=== PATIENT | male | born 1955 | race Caucasian/White ===

== ENCOUNTER 2017-01-13 11:10 | Observation (INO) | payer OTHER ==
[2017-01-13] MEDS ORDERED: MIDAZOLAM 2 MG/2 ML VIAL IVP ONE (11:21)
[2017-01-13] MEDS ORDERED: NS 1,000 ML IV ONE (11:21)
[2017-01-13] MEDS ORDERED: MIDAZOLAM 2 MG/2 ML VIAL ONE (11:53)
[2017-01-13] MEDS ORDERED: BUPIVACAINE 0.5% 30 ML SDV ONE (11:54)
[2017-01-13] MEDS ORDERED: ISOPROTERENOL HCL 0.2 MG/ML 5ML AMP ONE (11:54)
[2017-01-13] MEDS ORDERED: HEPARIN 10,000 UNIT/10 ML MDV ONE ×2 (11:54→14:42)
[2017-01-13] MEDS ORDERED: LIDOCAINE 1% 30 ML SDV ONE (11:54)
[2017-01-13] MEDS ORDERED: fentaNYL 100 MCG/2 ML INJ ONE ×2 (11:54→18:17)
[2017-01-13] MEDS ORDERED: PROPOFOL/EMULSION 500 MG/50 ML BOTTLE IV ONE (11:54)
--- NOTE | 2017-01-13 12:21 | CPEKG ---
Heart Rate: 97 RR Interval: 619 P-R Interval: 158 QRSD Interval: 82 QT Interval: 372 QTC Interval: 473 P [place]: 0 QRS [place]: -17 T Wave [place]: 62 EKG Severity - ABNORMAL ECG - EKG Impression: POSSIBLE ATRIAL ARRHYTHMIA, A-RATE 217 EKG Impression: BORDERLINE ST DEPRESSION, DIFFUSE LEADS EKG Impression: VENTRICULAR PREMATURE COMPLEXES Electronically Signed By: Alfredo Hamlin 14-Jan-2017 08:30:36
[2017-01-13 12:31] LABS: % IMMATURE GRANULYOCYTES 0.3 % (0.0-1.1); ABSOLUTE IMMATURE GRANULOCYTES 0.02 10^3/uL (0.00-0.10); ADD DIFF? NO; ADD MORPH? NO; ADD SCAN? NO; ATYPICAL LYMPHOCYTE FLAG 20 (0-99); FRAGMENT RBC FLAG 0 (0-99); HEMATOCRIT 50.4 % (40.0-51.0); HEMOGLOBIN 17.3 g/dL (13.7-17.5); LEFT SHIFT FLG 0 (0-99); LIPEMIA HEMOLYSIS FLAG 90 (0-99); MEAN CELL HEMOGLOBIN CONCENTR. 34.3 g/dL (32.4-36.7); MEAN CELL VOLUME 87.3 fL (81.5-99.8); MEAN PLATELET VOLUME 10.2 fL (8.7-11.7); PLATELET CLUMPS FLAG 0 (0-99); PLATELET COUNT 206 10^3/uL (150-400); RED BLOOD CELL COUNT 5.77 10^6/uL (4.40-6.38); RED CELL DISTRIBUTION WIDTH 13.4 % (11.5-15.2)
[2017-01-13 12:48] LABS: ANION GAP 12 mEq/L (8-16); CALCIUM 9.4 mg/dL (8.5-10.4); CARBON DIOXIDE 28 mEq/l (22-31); CHLORIDE 102 mEq/L (97-110); GLOMERULAR FILTRATION RATE > 60; GLUCOSE 87 mg/dL (70-100); MAGNESIUM 1.9 mg/dL (1.6-2.3); POTASSIUM 4.3 mEq/L (3.5-5.2); SODIUM 142 mEq/L (134-144)
[2017-01-13 12:51] LABS: APTT 29.2 SEC (23.0-38.0); INR 1.06 (0.83-1.16); PROTIME(PATIENT) 13.7 SEC (12.0-15.0)
[2017-01-13] MEDS ORDERED: SUGAMMADEX SODIUM 200 MG/2 ML VIAL IVP ONE (13:21)
[2017-01-13] MEDS ORDERED: ROCURONIUM 50 MG/5 ML VIAL ONE ×3 (13:21→16:06)
[2017-01-13] MEDS ORDERED: RANITIDINE 50 MG/2 ML VIAL ONE (13:21)
[2017-01-13] MEDS ORDERED: ONDANSETRON 4 MG/2 ML VIAL ONE (13:21)
[2017-01-13] MEDS ORDERED: HEPARIN/DEXTROSE 25,000 UNIT/500 ML BAG ONE (13:23)
[2017-01-13] MEDS ORDERED: PHENYLEPHRINE HCL 100 MCG/ML SYR ONE (15:31)
[2017-01-13] MEDS ORDERED: PROTAMINE SULFATE 50 MG/5 ML VIAL IVP ONE (16:54)
--- NOTE | 2017-01-13 17:10 | EPPROC ---
Electrophysiology Procedure Note: ELECTROPHYSIOLOGIC STUDY AND CATHETER MEDIATED ABLATION FOR SUBEUSTACHIAN ISTHMUS DEPENDENT COUNTERCLOCKWISE ATRIAL FLUTTER AND 2 SEPARATE MICROREENTRANT RIGHT ATRIAL TACHYCARDIAS INDICATION: Prior ablation for anterolateral right AT 4y ago at our institution Presented with AFL/AT PROCEDURES PERFORMED: 71658-32 EP evaluation with RA/RV/LA pace/record, with arrhythmia induction 27623-22 EP evaluation with RA/RV pace record, insert/reposition catheter, with arrhythmia induction 70005 SVT ablation 82783 3D mapping Intracardiac echo Fluoroscopy Catheters & Anesthesia: The patient arrived in the Electrophysiology Laboratory in the fasting state. The right clavicular region, right groin, and left groin area were prepped and draped in the usual sterile manner. Anesthesiologist Dr. Saad Orosco administered general anesthesia. Appropriate non-invasive blood pressure, pulse oximetry and end-tidal CO2 monitoring was established. BELEM was attempted at beginning of procedure, probe could be placed easily in esophagus manually and using glide scope but there was resistance at 15 cm. Therefore an ICE catheter was placed in the RA and LA/SAMM was imaged that showed no thrombus. All catheters were placed percutaneously using the modified Seldinger technique , and advanced into position under fluoroscopic guidance. One #7 Kittitian quadrapolar catheter was advanced to the His-bundle position via the left femoral vein and then placed in CS. Halo catheter was placed along the TA. Lizzy catheter was placed in the RAA. Heparin was administered to keep ACT > 250 seconds. Programmed stimulation was performed from the right atrium, coronary sinus ( left atrium) and right ventricle. Parahisian pacing demonstrated all retrograde conduction over the AV node. On arrival to the Electrophysiology Laboratory the patient was in atrial flutter , CL 280 ms. Entrainment mapping from lateral TA, septal TA, proximal CS and distal CS confirmed cavotricuspid isthmus dependent atrial flutter. In preparation for ablation of typical atrial flutter, a high-resolution 3D (3 dimensional) Carto electroanatomical map of the sub-Eustachian isthmus and right atrium was obtained during pacing of the posterolateral coronary sinus. High resolution 3D map of the RA and proximal CS using Pentaray catheter confirmed atrial flutter. For ablation of typical atrial flutter, one Agilis sheath was placed in the right atrium. A #8 Kittitian deflectable quadrapolar electrode catheter (2mm-5mm- 2mm spacing) with 3.5 mm irrigated tip electrode and location sensor for the Aquacue mapping system was inserted in the long sheath and advanced to the right atrium. Radiofrequency applications were applied between the tricuspid annulus at 0630 oclock as seen in the CYMRAES view and the inferior vena cava. AFL changed to a different tachycardia AT#2 CL 310 ms. AT#2 CL 310 ms high resolution 3D map of RA and proximal CS showed there was a scar in the posterolateral aspect of the RA extending from SVC to IVC. AT#2 was a microreentry circuit at the superior posterolateral aspect of the RA. Ablation at this site terminated AT#2 and it was noninducible afterwards. During CS pacing, further ablation was placed in the CT isthmus and bidirectional block confiremd. Following ablation AT#2 and AFL, programmed atrial stimulation was performed in the baseline state and during infusion of isoproterenol 1 mcg/min. AT#3, CL 340-350 ms was induced. AT#3 was a microreentry circuit at the inferior posterolateral aspect of the RA. Ablation at this site terminated AT# 3 and it was noninducible afterwards. The catheters were removed. Long sheath was changed to short 9Fr sheath. Protamine was administered. The patient was transferred to the cardiovascular holding area in stable condition. Vascular access sheaths were removed in the holding area. There were no apparent complications. CONCLUSIONS: 1. Cavotricuspid isthmus dependent counterclockwise atrial flutter. 2. Successful catheter mediated ablation of cavotricuspid isthmus achieving bi -directional conduction block across cavotricuspid isthmus. 3. Two separate microreentrant right atrial tachycardias ablated at the superior posterolateral and inferior posterolateral aspect of the right atrium. 4. No atrial arrhythmias inducible post ablation. 5. No apparent complications. Patient Problems: Problems Problem Status Onset Atrial flutter Acute Atrial tachycardia Acute Atrial fibrillation and flutter Active
[2017-01-13] MEDS ORDERED: OXYCODONE/APAP 5/325 TAB PO PRN (17:11)
[2017-01-13] MEDS ORDERED: ONDANSETRON 4 MG/2 ML VIAL IVP PRN (17:11)
[2017-01-13] MEDS ORDERED: ACETAMINOPHEN 325 MG TAB PO PRN (17:11)
--- NOTE | 2017-01-13 17:55 | CPEKG ---
Heart Rate: 46 RR Interval: 1304 QRSD Interval: 100 QT Interval: 468 QTC Interval: 410 QRS [place]: -6 T Wave [place]: 24 EKG Severity - ABNORMAL ECG - EKG Impression: JUNCTIONAL ESCAPE RHYTHM EKG Impression: INCOMPLETE RIGHT BUNDLE BRANCH BLOCK Electronically Signed By: Alfredo Hamlin 14-Jan-2017 08:28:16
[2017-01-13 18:36] LABS: ANION GAP 5 mEq/L (8-16); CALCIUM 8.2 mg/dL (8.5-10.4); CARBON DIOXIDE 25 mEq/l (22-31); CHLORIDE 107 mEq/L (97-110); CREATININE 0.9 mg/dL (0.7-1.3); GLOMERULAR FILTRATION RATE > 60; GLUCOSE 91 mg/dL (70-100); MAGNESIUM 1.7 mg/dL (1.6-2.3); POTASSIUM 4.1 mEq/L (3.5-5.2); SODIUM 137 mEq/L (134-144)
[2017-01-13] MEDS: ENOXAPARIN 80 MG/0.8 ML SYR SC SCH (22:32)
[2017-01-14 05:31] LABS: % IMMATURE GRANULYOCYTES 0.4 % (0.0-1.1); ABSOLUTE IMMATURE GRANULOCYTES 0.03 10^3/uL (0.00-0.10); ADD DIFF? NO; ADD MORPH? NO; ADD SCAN? NO; ATYPICAL LYMPHOCYTE FLAG 30 (0-99); FRAGMENT RBC FLAG 0 (0-99); HEMATOCRIT 42.2 % (40.0-51.0); LEFT SHIFT FLG 0 (0-99); LIPEMIA HEMOLYSIS FLAG 80 (0-99); MEAN CELL HEMOGLOBIN 29.9 pg (27.9-34.1); MEAN CELL HEMOGLOBIN CONCENTR. 33.2 g/dL (32.4-36.7); MEAN PLATELET VOLUME 10.8 fL (8.7-11.7); PLATELET CLUMPS FLAG 0 (0-99); PLATELET COUNT 172 10^3/uL (150-400); RED BLOOD CELL COUNT 4.69 10^6/uL (4.40-6.38); RED CELL DISTRIBUTION WIDTH 13.7 % (11.5-15.2)
[2017-01-14 05:38] LABS: ANION GAP 4 mEq/L (8-16); CALCIUM 8.5 mg/dL (8.5-10.4); CARBON DIOXIDE 26 mEq/l (22-31); CHLORIDE 106 mEq/L (97-110); CREATININE 1.1 mg/dL (0.7-1.3); GLOMERULAR FILTRATION RATE > 60; GLUCOSE 84 mg/dL (70-100); POTASSIUM 4.1 mEq/L (3.5-5.2); SODIUM 136 mEq/L (134-144)
[2017-01-14 05:48] LABS: INR 1.19 (0.83-1.16); PROTIME(PATIENT) 15.1 SEC (12.0-15.0)
[2017-01-14 05:49] LABS: TROPONIN I 0.206 ng/mL (0-0.034)
[2017-01-14 07:19] VITALS: BP 116/68; PULSE 48; RESP 14; TEMP 97.9; O2SAT 99
[2017-01-14 07:34] LABS: CREATINE KINASE-MB FRACTION 1.46 ng/mL (0-3.19)
--- NOTE | 2017-01-14 09:00 | CPEKG ---
Heart Rate: 49 RR Interval: 1224 P-R Interval: 124 QRSD Interval: 94 QT Interval: 500 QTC Interval: 452 P [place]: 264 QRS [place]: -4 T Wave [place]: 80 EKG Severity - BORDERLINE ECG - EKG Impression: ECTOPIC ATRIAL BRADYCARDIA EKG Impression: BORDERLINE INFERIOR Q WAVES EKG Impression: JUNCTIONAL RHYTHM WAS NOTED ON PRIOR (NO DISCERNABLE "P" WAVES WERE PREVIOUSLY EKG Impression: NOTED) Electronically Signed By: Alfredo Contreras 15-Jan-2017 10:15:10
--- NOTE | 2017-01-14 10:26 | ECHO ---
[id number] + + [address] : : [place] [address] : : [phone] + + Adult Echocardiographic Report + ----+ :Name: MONO HARE Date: 01/14/2017 08:10 AM : : Hospital Admission Number: [id number] Location: 203: :: 1955 Gender: Male Height: 72 in : :Age: 61 yrs Race: WH Weight: 181 lb : : : : BSA: 2.0 meters2 : :History: F/U post EP study : + ----+ MMode/2D Measurements \T\ Calculations IVSd: 0.82 cm RVDd: 4.4 cm FS: 28.3 % Ao root diam: LVPWd: 0.89 cm LVIDd: 4.5 cm EDV(Teich): 3.6 cm LVIDs: 3.2 cm 93.4 ml ESV(Teich): 42.3 ml EF(Teich): 54.8 % LVLd ap4: 9.2 cm SV(MOD-sp4): EDV(MOD-sp4): 74.0 ml 138.0 ml LVLs ap4: 8.1 cm ESV(MOD-sp4): 64.0 ml EF(MOD-sp4): 53.6 % Normal Measurement Values: + + :LVIDd (3.5-5.7cm) IVSd (0.6-1.1cm) LVPWd (0.6-1.1cm) Aortic Root (2.0-3.7cm)Left Atrium (1.5-4.0cm): :LV Vol(d) (76-115ml) LV Vol(s) (29-48ml) Ejec Fraction (50-65%)PV Curt (0.6- 1.2m/s) TV Curt (0.4-1.0m/s) : :MV E Curt (0.8-1.0m/s)MV A Curt (0.3-1.0m/s)LVOT Curt (0.7-1.2m/s) Asc Ao Curt ( 0.9-1.8m/s) : + + Doppler Measurements \T\ Calculations MV E max curt: MV V2 max: MV P1/2t max curt: Ao V2 max: 148.1 cm/sec 154.2 cm/sec 162.9 cm/sec 105.0 cm/sec MV A max curt: MV max PG: MV P1/2t: 104.2 msec Ao max P.7 cm/sec 9.5 mmHg MVA(P1/2t): 2.1 cm2 4.4 mmHg MV E/A: 6.0 MV V2 mean: MV dec slope: MV dec time: 73.7 cm/sec 0.30 sec MV mean P.0 cm/sec2 3.0 mmHg MV V2 VTI: 45.9 cm LV V1 max: PA V2 max: PI end-d curt: TR max curt: 82.5 cm/sec 90.9 cm/sec 61.1 cm/sec 253.8 cm/sec LV V1 max PG: PA max PG: TR max P.7 mmHg 3.3 mmHg 25.8 mmHg RAP systole: 10.0 mmHg RVSP(TR): 35.8 mmHg Left Ventricle The left ventricle is normal in size and function. There is normal left ventricular wall thickness. Ejection Fraction = 50-55%. Left ventricular systolic function is low normal. Mildly abnormal septal motion. Right Ventricle The right ventricle is mildly dilated. The right ventricular systolic function is mildly reduced. Atria The left atrium is mildly dilated. The left atrium measures 36 cm2. The right atrium is mild to moderately dilated. A dilated inferior vena cava suggests increased right atrial pressure. There was no clot seen in the IVC. Mitral Valve S/P mitral valve repair. Posterior leaflet appears fixed and anterior leaflet appears mildy myxomatous. No significant mitral valve stenosis. There is trace to mild mitral regurgitation. Tricuspid Valve The tricuspid valve is normal in structure and function. There is no tricuspid stenosis. There is mild tricuspid regurgitation. Right ventricular systolic pressure is 36mmHg. Aortic Valve The aortic valve is trileaflet. There is no aortic stenosis. There is no aortic insufficiency. Pulmonic Valve The pulmonic valve is normal in structure and function. trace to mild pulmonic valvular regurgitation. Great Vessels The aortic root is normal size. Pericardium/Pleural There is no pericardial effusion. Conclusion The left ventricle is normal in size and function. Mildly abnormal septal motion. Ejection Fraction = 50-55%. Left ventricular systolic function is low normal. The right ventricle is mildly dilated. The right ventricular systolic function is mildly reduced. The left atrium is mildly dilated. The left atrium measures 36 cm2. The right atrium is mild to moderately dilated. A dilated inferior vena cava suggests increased right atrial pressure. There was no clot seen in the IVC. S/P mitral valve repair. Posterior leaflet appears fixed and anterior leaflet appears mildy myxomatous. There is trace to mild mitral regurgitation. There is mild tricuspid regurgitation. Right ventricular systolic pressure is 36mmHg. trace to mild pulmonic valvular regurgitation. Final Reading Physician: Jose Fairchild MD electronically signed on 01/14/2017 10:25 AM Ordering Physician: Jose Fairchild
[2017-01-14] MEDS: ENOXAPARIN 80 MG/0.8 ML SYR SC SCH (11:14)
--- NOTE | 2017-01-14 16:40 | GDS ---
[f rep st] DISCHARGE SUMMARY ADMISSION DIAGNOSES: 1. Atrial flutter. 2. Atrial tachycardia. 3. Carotid artery disease. 4. Obstructive sleep apnea. 5. Status post mitral valve repair. DISCHARGE DIAGNOSES: 1. Atrial fibrillation. 2. Atrial flutter. 3. Status post catheter mediated ablation of the cavo-tricuspid isthmus achieving bidirectional conduction block for atrial flutter. 4. Status post 2 right atrial tachycardia ablations in the superior posterolateral and inferior posterior aspect of the right atrium. 5. Carotid artery disease. 6. Gastroesophageal reflux disease. 7. History of status post mitral valve repair. 8. GRAY PROCEDURES DONE DURING HOSPITALIZATION: 1. Electrocardiogram. 2. Electrophysiology study. 3. Successful catheter mediated ablation of the cavo-tricuspid isthmus achieving bidirectional conduction block across the cavo-tricuspid isthmus for atrial flutter ablation. 4. Two atrial tachycardic ablations at the superior posterolateral and inferior posterolateral aspect of the right atrium. 5. Echocardiogram. BRIEF HISTORY: Please see H and P. The patient is a 61-year-old male who has noted history of atrial tachycardia with previous ablation in 2011. He had done well for 4 years but recently found to be having runs of atrial tachycardia and atrial flutter, undergoing cardioversion procedure in June of last year. He reports since then he has been having episodes of palpitations with symptoms of fatigue. He had seen Dr. Fairchild, in which he was determined to be an appropriate candidate for electrophysiology study. HOSPITAL COURSE: Patient was admitted through the CVC, prepped for procedure, and taken to the electrophysiology suite. There Dr. Fairchild performed the EP procedure, successfully identifying 2 separate micro reentry atrial tachycardia and cavo-tricuspid isthmus-dependent counterclockwise atrial flutter. Atrial flutter ablation was done with no incidence followed by 2 atrial tachycardia ablations. No complications, patient was transferred back to the CVC and ultimately to the PCU for overnight observation. Patient reporting no chest pain or shortness of breath, has been up and walking the unit without any symptoms. It was noted last night, around 8:16 he did have a 13-beat of nonsustained VT, asymptomatic, and this morning, he was noted to go into a junctional rhythm in which he returned back into sinus briefly. He has had no bleeding episodes. PHYSICAL EXAMINATION: Done today: GENERAL APPEARANCE: Medium built, well- groomed, male. He is alert and oriented to person, place, time, and situation. Appears to be under no acute distress. CURRENT VITAL SIGNS: Blood pressure of 116/68, heart rate 48 beats per minute, sinus kirt on the monitor, respirations 14, saturating 99% on room air, temperature of 36.6 degrees Celsius. HEENT: Head is normocephalic. Lips and tongue are pink moist with no signs of cyanosis. Conjunctivae pink. NECK: Trachea is midline, +2 carotid pulses bilateral. No auscultated bruits, no jugular vein distention. RESPIRATORY: Lungs clear to auscultation, no rhonchi, rales, or wheezes. No accessory muscle use, no intercostal muscle retraction noted. CARDIAC: Regular rate, regular rhythm, S1, S2, no S3, S4, gallops. Rubs noted, 1/6 systolic murmur noted along the left sternal border. ABDOMEN: Soft, nontender , bowel sounds x4 quadrants, no organomegaly, no palpable masses. SKIN: Emily, warm, dry, no cyanosis, no clubbing, no peripheral edema. VASCULAR: +2 carotids bilateral, +2 radials bilateral, +1 posterior tibial pulses bilateral. Catheter insertion site, right groin site, bilateral groin sites with no redness, swelling, drainage, ecchymosis, or hematoma. No auscultated bruits noted. NEURO: Cranial nerves 2-12 grossly intact. LABORATORY STUDIES: Drawn today show WBC of 7.89, hemoglobin of 14.0, hematocrit of 42.0, platelet count of 172. INR was 1.19. Sodium 136, potassium 4.1, chloride 106, CO2 of 26, BUN 16, creatinine 1.1, glucose 84, calcium 8.5, magnesium 2.0. CK 52, CK-MB fraction 1.46. Troponin 0.206, note expected elevated cardiac marker status post ablation. PROCEDURES: Electrophysiology study and ablation procedures as mentioned above. This morning's echocardiogram showed LV normal size and function, mild abnormal septal motion, EF 50% to 55%, LV systolic function is low normal, RV is mildly dilated, RV systolic function is mildly reduced, LA is mildly dilated , left atrium measured 36 cm2, right atrium is [id number] dilated, dilated inferior cava suggesting increased right atrial pressures, no clot seen in IVC, status post mitral valve repair, posterior leaflet appears fixed and anterior leaflet appears mild , trace to mild MR, mild TR, RVSP estimated at 36 mmHg, trace to mild PI. Morning electrocardiogram showed ectopic atrial bradycardia, nondiagnostic Q- waves noted in inferior leads. DISCHARGE DISPOSITION: Patient will be discharged home in fair condition. He is under activity restrictions to not lift more than 10 pounds for next week. No strenuous activity for the next 2 weeks. DISCHARGE MEDICATIONS: Please see discharge med reconciliation sheet. Note patient has been bridged with Lovenox post procedure, he will start Eliquis at 5 mg p.o. b.i.d. tonight. DISCHARGE INSTRUCTIONS: Post electrophysiology, atrial flutter/atrial tachycardia ablation: Post discharge instructions went over with the patient including monitoring for signs of infection, activity restrictions, medication compliancy, and bathing precautions. Due to arrhythmias noted last evening and this morning, Dr. Fairchild has requested that the patient be placed on a 48 hour Holter monitor which will be placed at our office at 2 p.m. today. At the time of discharge, patient and his verbalized understanding all instructions and have no further questions. Patient was told that if he has any problems or concerns post discharge, they are to call our office or return to the office. Total time spent on discharge greater than 30 minutes. /[id number]/MODL MTDD
[2017-01-15] MEDS ORDERED: METHIMAZOLE 5 MG TAB PO SCH (09:00)
[2017-01-16] MEDS ORDERED: METHIMAZOLE 5 MG TAB PO SCH (09:00)
== END 2017-01-14 13:59 | disposition home or self-care (01) ==
LOC: F3E 11:10 → F2W 12:38 → F2N 15:43 → F2W 18:36
PROVIDERS: ADMIT Internal Medicine Cardiovascular Disease; ATTEND Internal Medicine Cardiovascular Disease
DX: I48.91 Unspecified atrial fibrillation (principal); I48.92 Unspecified atrial flutter; K21.9 Gastro-esophageal reflux disease without esophagitis; I77.9 Disorder of arteries and arterioles, unspecified; G47.33 Obstructive sleep apnea (adult) (pediatric)
CPT/HCPCS: 93005; 93306; 93613; 93653; 93655; G0378; J1644; J1650; J2250; J2370; J2405; J2704; J2720; J2780; J3010

== ENCOUNTER 2017-01-26 07:14 | Observation (INO) | payer OTHER ==
[2017-01-26] MEDS ORDERED: DIAZEPAM 5 MG TAB PO ONE (07:24)
[2017-01-26] MEDS ORDERED: diphenhydrAMINE 25 MG CAP PO ONE (07:24)
[2017-01-26] MEDS ORDERED: NS 1,000 ML IV ONE (07:24)
[2017-01-26] MEDS ORDERED: BACITRACIN IRRIGATION/NS 50,000 UNITS/1,000 ML BTL IRR ONE (07:24)
[2017-01-26] MEDS ORDERED: VANCOMYCIN HCL/NORMAL SALINE 250 ML IV ONE (08:00)
[2017-01-26 08:07] LABS: % IMMATURE GRANULYOCYTES 0.4 % (0.0-1.1); ABSOLUTE IMMATURE GRANULOCYTES 0.02 10^3/uL (0.00-0.10); ADD DIFF? NO; ADD MORPH? NO; ADD SCAN? NO; ATYPICAL LYMPHOCYTE FLAG 50 (0-99); FRAGMENT RBC FLAG 0 (0-99); HEMATOCRIT 50.1 % (40.0-51.0); HEMOGLOBIN 16.9 g/dL (13.7-17.5); LEFT SHIFT FLG 0 (0-99); LIPEMIA HEMOLYSIS FLAG 80 (0-99); MEAN CELL HEMOGLOBIN 29.6 pg (27.9-34.1); MEAN CELL HEMOGLOBIN CONCENTR. 33.7 g/dL (32.4-36.7); MEAN CELL VOLUME 87.7 fL (81.5-99.8); MEAN PLATELET VOLUME 10.1 fL (8.7-11.7); PLATELET CLUMPS FLAG 0 (0-99); PLATELET COUNT 241 10^3/uL (150-400); RED BLOOD CELL COUNT 5.71 10^6/uL (4.40-6.38); RED CELL DISTRIBUTION WIDTH 13.3 % (11.5-15.2)
[2017-01-26 08:25] LABS: INR 1.08 (0.83-1.16); PROTIME(PATIENT) 13.9 SEC (12.0-15.0)
[2017-01-26 08:28] LABS: ANION GAP 9 mEq/L (8-16); CALCIUM 9.3 mg/dL (8.5-10.4); CARBON DIOXIDE 28 mEq/l (22-31); CHLORIDE 103 mEq/L (97-110); CREATININE 1.1 mg/dL (0.7-1.3); GLOMERULAR FILTRATION RATE > 60; GLUCOSE 89 mg/dL (70-100); POTASSIUM 4.1 mEq/L (3.5-5.2); SODIUM 140 mEq/L (134-144)
--- NOTE | 2017-01-26 13:40 | EPPROC ---
Electrophysiology Procedure Note: PROCEDURE PERFORMED: 1. Implantation of an A/V Pacemaker 2. Subclavian vein angiography 3. Fluoroscopy INDICATION: Junctional rhythm, sinus bradycardia with dizziness PROCEDURE NOTE: Patient presented to the cardiac catheterization laboratory in a fasting, post absorptive state . CCL RN administered sedation. The left infraclavicular area was prepped and draped in the usual sterile fashion. Lidocaine plus bupivacaine was used for local anesthesia. Left subclavian venography was performed by injection of iodinated contrast into the left antecubital vein. This was done to assure patency of the vein and also to assess for any anatomical aberrations. Using a combination of blunt and sharp dissection and electrocautery, the dissection was carried down to the prepectoral fascia. A pocket was made in this anatomical plane. All bleeding was controlled with electrocautery. The pocket was packed with gauze soaked in antibiotic solution. Fluoroscopy was utilized during the entire procedure for venous access and placement of the leads. Using a direct stick technique the left extrathoracic axillary vein was accessed with 2 sticks using the modified Seldinger technique. Placement of the guidewires into the venous system was confirmed by low-pressure blood return and also by visualizing the guidewires advancing into the inferior vena cava. A purse string suture was applied around the guidewires. Two #7 Kiswahili sheaths were advanced under fluoroscopic guidance over the guidewire. An active fixation ventricular lead was advanced into the right ventricular apex and screwed in place. An active fixation atrial lead was advanced into the right atrial appendage and screwed in place. The peel away sheaths were removed. Pacing thresholds, sensing parameters and lead impedances were measured. There was no diaphragmatic stimulation at maximum output. The leads were sutured to the prepectoral fascia with 3 nonabsorbable sutures each. The pocket was again inspected for any bleeding. The leads were attached to the pacemaker securely. The pacemaker was inserted into the pocket and secured in place with a nonabsorbable suture. The atrial lead dislodged after the pacemaker pocket was closed and therefore had to be repositioned. Fluoroscopy was performed in [place] and [place] planes to verify right-sided placement of the leads. Also fluoroscopy of the pacemaker pocket was performed. The pacemaker pocket was closed in 3 layers with absorbable monocryl sutures and erickson. Appropriate dressing was applied. The patient left the cardiac catheterization laboratory in stable condition. Serial Numbers: 1. Device: SJM Assurity MRI 2272 SN [id number] 2. Atrial Lead: SJM Tendril [id number] SN [id number] 3. Ventricular Lead: SJM Tendril [id number] SN [id number] Stimulation Thresholds & Impedance Measurements: 1. Atrial Lead P 1.5 mv 475 ohm 1.2 V 0.5 ms 2. Ventricular Lead R 9 mV 0.9 V 0.5 ms 840 ohm Darrin Pacing Parameters 1. Pacing mode: DDDR 2. Lower rate: 60 ppm 3. Upper tracking rate: 130 ppm 4. Upper sensor rate: 130 ppm Patient Problems: Problems Problem Status Onset Junctional rhythm Acute Sinus bradycardia Acute Atrial flutter Acute Atrial tachycardia Acute Atrial fibrillation and flutter Active
[2017-01-26] MEDS ORDERED: HYDROCODONE/APAP 5/325 TAB PO PRN (13:41)
[2017-01-26] MEDS ORDERED: METHIMAZOLE 5 MG TAB PO SCH (14:00)
--- NOTE | 2017-01-26 14:16 | CPEKG ---
Heart Rate: 125 RR Interval: 480 P-R Interval: 164 QRSD Interval: 86 QT Interval: 348 QTC Interval: 502 P [place]: 0 QRS [place]: -1 T Wave [place]: 242 EKG Severity - ABNORMAL ECG - EKG Impression: VENTRICULAR-PACED COMPLEXES ....the first few beats appear to be nsr with 1st EKG Impression: degree A-V block EKG Impression: PROBABLE LEFT ATRIAL ABNORMALITY EKG Impression: NONSPECIFIC REPOL ABNORMALITY, DIFFUSE LEADS Electronically Signed By: Prince Cox 27-Jan-2017 06:51:02
[2017-01-26] MEDS: METOPROLOL TARTRATE 25 MG TAB PO SCH ×2 (15:18→20:55)
[2017-01-27 04:34] LABS: % IMMATURE GRANULYOCYTES 0.3 % (0.0-1.1); ABSOLUTE IMMATURE GRANULOCYTES 0.02 10^3/uL (0.00-0.10); ADD DIFF? NO; ADD MORPH? NO; ADD SCAN? NO; ATYPICAL LYMPHOCYTE FLAG 0 (0-99); FRAGMENT RBC FLAG 0 (0-99); HEMATOCRIT 45.9 % (40.0-51.0); HEMOGLOBIN 15.5 g/dL (13.7-17.5); LEFT SHIFT FLG 0 (0-99); LIPEMIA HEMOLYSIS FLAG 90 (0-99); MEAN CELL HEMOGLOBIN CONCENTR. 33.8 g/dL (32.4-36.7); MEAN CELL VOLUME 88.8 fL (81.5-99.8); PLATELET CLUMPS FLAG 0 (0-99); PLATELET COUNT 193 10^3/uL (150-400); RED BLOOD CELL COUNT 5.17 10^6/uL (4.40-6.38); RED CELL DISTRIBUTION WIDTH 13.3 % (11.5-15.2)
[2017-01-27 04:52] LABS: ANION GAP 7 mEq/L (8-16); CALCIUM 8.7 mg/dL (8.5-10.4); CARBON DIOXIDE 25 mEq/l (22-31); CHLORIDE 106 mEq/L (97-110); CREATININE 0.9 mg/dL (0.7-1.3); GLOMERULAR FILTRATION RATE > 60; GLUCOSE 82 mg/dL (70-100); POTASSIUM 4.2 mEq/L (3.5-5.2); SODIUM 138 mEq/L (134-144)
[2017-01-27] MEDS: METOPROLOL TARTRATE 25 MG TAB PO SCH (08:26)
--- NOTE | 2017-01-27 08:51 | CPEKG ---
Heart Rate: 67 RR Interval: 896 P-R Interval: 196 QRSD Interval: 96 QT Interval: 408 QTC Interval: 431 QRS [place]: 24 T Wave [place]: 54 EKG Severity - ABNORMAL ECG - EKG Impression: ATRIAL-PACED COMPLEXES EKG Impression: VENTRICULAR PREMATURE COMPLEX EKG Impression: BORDERLINE T WAVE ABNORMALITIES Electronically Signed By: Jose Fairchild 27-Jan-2017 13:16:14
[2017-01-27] MEDS ORDERED: METHIMAZOLE 5 MG TAB PO SCH (09:00)
[2017-01-27] MEDS ORDERED: APIXABAN 5 MG TAB PO SCH (09:30)
[2017-01-27 11:31] VITALS: BP 97/57; PULSE 78; RESP 18; TEMP 98.2; O2SAT 93
--- NOTE | 2017-01-28 00:57 | GDS ---
[f rep st] DISCHARGE SUMMARY ADMITTING DIAGNOSES: 1. Symptomatic junctional rhythm. 2. Supraventricular tachycardia. 3. Status post atrial flutter and atrial tachycardia ablation on January 13. 4. Status post mitral valve repair in 2009. DISCHARGE DIAGNOSES: 1. Status post dual-chamber pacemaker implantation. 2. Supraventricular tachycardia. 3. Prior AFL and AT ablations 4. Prior mitral valve repair. PROCEDURES: 1. Electrocardiogram. 2. Chest x-ray. 3. Dual-chamber pacemaker implantation. BRIEF HISTORY: This is a 61-year-old man who is status post atrial flutter and 2 separate atrial tachycardia ablations on January 13, 2017. He then began experiencing symptoms of intermittent lightheadedness, and Holter monitor demonstrated intermittent junctional rhythm. Recommendations were made for dual -chamber pacemaker insertion. HOSPITAL COURSE: Dr. Fairchild implanted a [employer] dual- chamber pacemaker. Lower rate is set at 60 beats per minute, mode is DDDR. Pacemaker interrogation this morning demonstrated good pacing and sensing thresholds. He did have brief atrial tachycardia. On pacemaker interrogation, he had no retrograde conduction. He was started on metoprolol 25 mg b.i.d. for the atrial tachycardia. Chest x-ray on the morning of discharge demonstrated no pleural effusion and appropriate pacemaker lead location. PHYSICAL EXAMINATION: VITAL SIGNS: This morning, blood pressure 122/66, heart rate 62, respirations 14, O2 saturation on room air is 94%, temperature is 36.5 celsius. GENERAL: He is alert and oriented, in no acute distress. CARDIAC: Regular rate and rhythm without murmur, rub, or gallop. LUNGS: Clear to auscultation. Pacemaker site has a dry and intact dressing without blood on it. EXTREMITIES: Warm, no lower extremity edema or discoloration. LABORATORY VALUES: Sodium 138, potassium 4.2, chloride 106, bicarb 26, BUN 7, creatinine 1.8, glucose 82. WBC 6.47, hemoglobin 15.5, hematocrit 45.9, platelets 193,000. INR 1.08. PT 13.9. DISCHARGE DISPOSITION: He is discharged in good condition. Activity restrictions were reviewed, and he was given written instructions for these. He is to monitor for signs or symptoms of infection and alert us immediately if these are found. DISCHARGE MEDICATIONS: See discharge medication reconciliation. Of note, Eliquis 5 mg b.i.d. was restarted, and metoprolol 25 mg b.i.d. new prescription was given. FOLLOWUP: He has a followup pacemaker check on February 04 at 3 p.m. and February 25 at 1 :[address] Fairchild. TOTAL TIME SPENT ON DISCHARGE: Greater than 30 minutes. /[id number]/MODL MTDD
== END 2017-01-27 15:07 | disposition home or self-care (01) ==
LOC: F3E 07:14 → F2W 07:14
PROVIDERS: ADMIT Internal Medicine Cardiovascular Disease; ATTEND Internal Medicine Cardiovascular Disease
PROC: 0JH606Z Insertion of Pacemaker, Dual Chamber into Chest Subcutaneous Tissue and Fascia, Open Approach (ICD-10-PCS; principal; 2017-01-26)
PROC: 02H63JZ Insertion of Pacemaker Lead into Right Atrium, Percutaneous Approach (ICD-10-PCS; principal; 2017-01-26)
PROC: 02HK3JZ Insertion of Pacemaker Lead into Right Ventricle, Percutaneous Approach (ICD-10-PCS; principal; 2017-01-26)
DX: I49.8 Other specified cardiac arrhythmias (principal); I47.1 Supraventricular tachycardia; I48.92 Unspecified atrial flutter; I48.91 Unspecified atrial fibrillation; Z98.890 Other specified postprocedural states
CPT/HCPCS: 33208; 93005; G0378; C1785; C1898; J3370

== ENCOUNTER → 2017-02-27 | Outpatient (CLI) | payer OTHER | LOC: FIMAGING 11:47 | PROVIDERS: ATTEND Internal Medicine Cardiovascular Disease | DX: J44.9 Chronic obstructive pulmonary disease, unspecified (principal); I51.7 Cardiomegaly ==

== ENCOUNTER → 2018-01-29 | Outpatient (CLI) | payer OTHER | LOC: FIMAGING 09:10 | PROVIDERS: ATTEND Urology | PROC: CP1Z1ZZ Planar Nuclear Medicine Imaging of Musculoskeletal System, All using Technetium 99m (Tc-99m) (ICD-10-PCS; principal; 2018-01-29) | DX: C61 Malignant neoplasm of prostate (principal) | CPT/HCPCS: 78306; A9503 ==

== ENCOUNTER → 2018-02-18 | Outpatient (CLI) | payer OTHER ==
[~2018-02-18] MED LIST: IOPAMIDOL (ISOVUE 370) 100 ML BTL IV ONE
== END ==
LOC: FIMAGING 14:36
PROVIDERS: ATTEND Psychiatry & Neurology Neurology
DX: I77.89 Other specified disorders of arteries and arterioles (principal); R42 Dizziness and giddiness; R29.818 Other symptoms and signs involving the nervous system
CPT/HCPCS: 70450; 70496; 70498; Q9967